=== PATIENT | female | born 1985 | race Hispanic/Latino ===

== ENCOUNTER 2017-01-19 12:47 | Outpatient (CLI) | payer BC ==
[2017-01-19] MEDS ORDERED: LACTATED RINGERS 500 ML IV ONE (13:56)
[2017-01-19 14:39] VITALS: BP 107/63
[2017-01-19 14:39] LABS: Bacteria,Urine 4+ /HPF (Negative); Bilirubin,Urine NEG (Negative); Blood,Urine NEG (Negative); Ketones,Urine NEG (Negative); Leukocyte Esterase,Urine SM (Negative); Mucus,Urine FEW /HPF; Nitrite,Urine NEG (Negative); Protein,Urine <15 mg/dL mg/dL (Negative); Urobilinogen,Urine < 2.0 mg/dL (<2.0)
== END 2017-01-19 15:55 | disposition home or self-care (01) ==
LOC: TRG 12:47
PROVIDERS: ATTEND Obstetrics & Gynecology
DX: O47.02 False labor before 37 completed weeks of gestation, second trimester (principal); Z3A.23 23 weeks gestation of pregnancy
CPT/HCPCS: 81001

== ENCOUNTER 2017-03-28 18:31 | Outpatient (CLI) | payer BC ==
[2017-03-28 19:24] VITALS: BP 109/66
== END 2017-03-28 19:35 | disposition home or self-care (01) ==
LOC: TRG 18:31
PROVIDERS: ATTEND Obstetrics & Gynecology
DX: O47.03 False labor before 37 completed weeks of gestation, third trimester (principal); Z3A.32 32 weeks gestation of pregnancy

== ENCOUNTER 2017-04-12 21:40 | Outpatient (CLI) | payer BC ==
[2017-04-12 22:06] VITALS: BP 124/79
[2017-04-12] MEDS ORDERED: LACTATED RINGERS 1,000 ML IV ONE (22:35)
[2017-04-12 23:15] LABS: Bacteria,Urine 1+ /HPF (Negative); Bilirubin,Urine NEG (Negative); Blood,Urine NEG (Negative); Ketones,Urine NEG (Negative); Leukocyte Esterase,Urine NEG (Negative); Mucus,Urine FEW /HPF; Nitrite,Urine NEG (Negative); Protein,Urine <15 mg/dL mg/dL (Negative); Urobilinogen,Urine < 2.0 mg/dL (<2.0)
--- NOTE | 2017-04-13 00:24 | Ultrasound Report ---
FINAL REPORT PROCEDURE: US OB BPP WO NON-STRESS TECHNIQUE: Real-time limited sonographic examination was performed for evaluation of size, position, heartbeat, fluid volume for each fetus with image documentation (1 or more fetuses). CPT 08990 HISTORY: decreased movement COMPARISON: No prior studies are available for comparison. FINDINGS: Biophysical profile: breathing movements: 2. movements: 2. posterior and tone: 2. Qualitative amniotic fluid volume: 2. Total score: 8/8. Heart rate 158 beats per minute. IMPRESSION: Normal biophysical profile.
== END 2017-04-13 00:38 | disposition home or self-care (01) ==
LOC: TRG 21:40
PROVIDERS: ATTEND Obstetrics & Gynecology
DX: O62.9 Abnormality of forces of labor, unspecified (principal); O36.8130 Decreased fetal movements, third trimester, not applicable or unspecified; Z3A.35 35 weeks gestation of pregnancy
CPT/HCPCS: 59025; 76819; 81001; 96360; J7120

== ENCOUNTER 2017-04-13 20:47 | Outpatient (CLI) | payer BC ==
[2017-04-13] MEDS ORDERED: LACTATED RINGERS 1,000 ML IV ONE (21:16)
[2017-04-14] MEDS ORDERED: BICITRA PO ONE (00:09)
[2017-04-14] MEDS ORDERED: PEPCID IV ONE (00:09)
[2017-04-14] MEDS ORDERED: REGLAN IV ONE (00:09)
[2017-04-14] MEDS ORDERED: BRETHINE ONE (00:27)
[2017-04-14 00:44] LABS: Basophils % (Auto) 0.7 % (0.0-1.8); Eosinophils % (Auto) 2.5 % (0.0-4.3); Hematocrit 34.5 % (30.3-42.9); Hemoglobin 11.9 gm/dl (10.1-14.3); Mean Corpuscular HGB Conc 34 % (30-34); Mean Corpuscular Hemoglobin 31 pg (28-32); Mean Corpuscular Volume 89 fl (79-97); Platelet Count 198 K/mm3 (140-440); Red Blood Count 3.89 M/mm3 (3.65-5.03); Red Cell Distribution Width 13.7 % (13.2-15.2)
[2017-04-14] MEDS ORDERED: ANCEF/STERILE WATER 2 GM/20 ML 2 GM/20 ML SYRINGE IV NR (01:00)
[2017-04-14] MEDS ORDERED: PITOCin/NS 20 UNIT/1000ML DRIP 20 UNITS/1,000 ML BAG IV SCH (01:00)
[2017-04-14] MEDS ORDERED: LACTATED RINGERS 1,000 ML IV SCH (01:00)
--- NOTE | 2017-04-14 01:21 | History and Physical Report ---
History of Present Illness Date of examination: 04/14/17 Chief complaint: contractions, brown discharge History of present illness: Pt is a 31 year old female KAILYN 05/18/17 at 35w1d who present with c/o contractions since this afternoon and brown vaginal discharge. Pt presented to triage yesterday with c/o of contractions, was noted to be 1-2/50/- 4 on 04/12/17 at 2221PM, given IV hydration and sent home with labor precautions. Today she is jackson q 3-6 minutes. Initially, she was 2 cm at 2119, then changed to 3.5/50/-3 at 0000 on 04/14/17. She has had care at [facility] since 7 wks complicated by h /o PPROM at 22 wks with subsequent 24 wk classical delivery in 2012, seizure disorder on Keppra 750 PO BID. She has been comanaged by [facility] for the aforementioned issues. She has weekly received 17 hydroxy progesterone injections throughout this . She is GBS unknown. The patient last ate at 2 pm on 04/13/17. Past History Past Medical History: seizure, other (Panic Disorder) Past Surgical History: cholecystectomy, section (previous classical section in 2012 ) [employer] [employer] [facility] History: abnormal PAP smear Family/Genetic History: heart disease Social history: - Obstetrical History Expected Date of Delivery: 05/18/17 Actual Gestation: 35 Week(s) 1 Day(s) : 5 Para: 2 Hx # Term Pregnancies: 1 Number of Pregnancies: 1 Spontaneous Abortions: 2 Induced : 0 Number of Living Children: 2 Medications and Allergies Allergies Allergy/AdvReac Type Severity Reaction Status Date / Time No Known Allergies Allergy Unverified 01/08/14 16:32 Home Medications Medication Instructions Recorded Confirmed Last Taken Type Vits96/Iron Fum/Folic 1 each PO DAILY 01/08/14 04/12/17 04/12/17 History [ Tablet] levETIRAcetam [Keppra] 750 mg PO BID 01/08/14 04/12/17 04/12/17 History Active Meds: Active Medications Lactated Ringer's (Lactated Ringers) 1,000 mls @ 2,250 mls/hr IV PREOP ZULMA Stop: 04/15/17 01:27 Oxytocin/Sodium Chloride (Pitocin/Ns 20 Unit/1000ml Drip) 20 units in 1,000 mls @ 0 mls/hr IV TITR ZULMA PRN Reason: As Directed Review of Systems All systems: negative - Vital Signs Vital signs: Vital Signs Temp Resp 97.8 F 18 04/13/17 21:13 04/13/17 21:13 Temp Pulse Resp BP Pulse Ox 97.8 F 124 H 18 123/79 99 04/13/17 21:13 04/14/17 01:18 04/13/17 21:13 04/13/17 21:16 04/14/17 01:18 - Physical Exam Breasts: Positive: deferred Cardiovascular: Regular rate Lungs: Positive: Clear to auscultation Abdomen: Positive: soft (gravid ) Uterus: Positive: enlarged (gravid ) Extremities: Positive: normal - Obstetrical Cervical Dilatation: 3.5 Cervical Effacement Percentage: 50 station: -3 Uterine Contraction Pattern: Regular Uterine Tone Measurement Phase: Resting Uterine Contraction Intensity: Moderate Results Result Diagrams: 04/14/17 00:25 Abnormal lab results 04/14/17 Range/Units 00:25 Lymph % (Auto) 10.2 L (13.4-35.0) % Lymph # 1.1 L (1.2-5.4) K/mm3 Seg Neutrophils % 81.8 H (40.0-70.0) % Seg Neutrophils # 9.0 H (1.8-7.7) K/mm3 All other labs normal. Assessment and Plan A: IUP at 35w1d labor Previous classical section Seizure Disorder Panic Disorder GBS unknown NICU on diversion P: Betamethasone 12 mg IM once now Tocolysis as needed to stabilize for transfer Transfer to [facility] for delivery- Dr Valorie Davidson has accepted the admission
[2017-04-14] MEDS ORDERED: CELESTONE SOLUSPAN IM ONE ×2 (01:33→01:42)
[2017-04-14 02:15] VITALS: BP 116/71
[2017-04-14] MEDS ORDERED: ZOFRAN IV ONE (02:17)
--- NOTE | 2017-04-14 06:25 | Event Note ---
Date: 04/14/17 Despite multiple attempts with multiple companies for emergency department the patient has still not been able to be transported. Her cervix remains 4 cm but is continuing to efface and continues to have brown discharge with exams. The patient was given the option of section here with transfer of the baby after due to prolonged wait time for medical transport. Pt has left against medical advice and plans to have her drive her to [facility]. She has been given a copy of her medical records to take with her.
== END 2017-04-14 06:20 | disposition left against medical advice (07) ==
LOC: TRG 20:47
PROVIDERS: ATTEND Obstetrics & Gynecology
DX: O47.03 False labor before 37 completed weeks of gestation, third trimester (principal); Z3A.35 35 weeks gestation of pregnancy
CPT/HCPCS: 36415; 59025; 85025; 86850; 86900; 86901; 96360; 96361; J0702; J2405; J3105; J7120